=== PATIENT | male | born 1940 | race Caucasian/White ===

== ENCOUNTER 2022-05-24 13:44 | Inpatient (IN) | payer MEDICAID, MEDICARE ==
[~2022-05-24] VITALS: Ht 162.6 cm; Wt 68.7 kg
[~2022-05-24 13:44] MED LIST: NOCURR
[2022-05-24 14:52] LABS: BASOPHILS % (AUTO) 0.8 % (0.0-2.0); HEMOGLOBIN 13.6 g/dL (13.5-17.5); LYMPHOCYTES # (AUTO) 1.2 K/uL (1.0-4.8); LYMPHOCYTES % (AUTO) 19.6 % (22.0-44.0); MEAN CORPUSCULAR HGB CONC 34.8 G/dL (31.0-37.0); MEAN CORPUSCULAR VOLUME 98 fL (80-100); MONOCYTES # (AUTO) 0.5 K/uL (0.1-1.0); MONOCYTES % (AUTO) 7.7 % (2.0-9.0); NEUTROPHILS # (AUTO) 4.1 K/uL (1.8-7.7); NEUTROPHILS % (AUTO) 69.9 % (40.0-70.0); PLATELET COUNT (AUTO) 154 K/uL (150-450)
[2022-05-24 15:04] LABS: ANION GAP 12 mmol/L (8-16); CARBON DIOXIDE 27 mmol/L (22-29); CHLORIDE 102 mmol/L (98-107); CREATININE 1.04 mg/dL (0.60-1.30); GLOMERULAR FILTR. RATE CALC > 60 mL/min (>60); GLUCOSE,RANDOM 93 mg/dL (70-110); POTASSIUM 4.2 mmol/L (3.5-5.1); SODIUM SERUM 141 mmol/L (136-145); UREA NITROGEN, BLOOD 18 mg/dL (7-18)
[2022-05-24 15:09] LABS: ALANINE AMINOTRANSFERASE 41 U/L (12-78); ALBUMIN 3.7 g/dL (3.4-5.0); ALKALINE PHOSPHATASE 37 U/L (46-116); ASPARTATE AMINOTRANSFERASE 22 U/L (15-37); BILIRUBIN,TOTAL 0.6 mg/dL (0.1-1.0); TOTAL PROTEIN, SERUM 6.9 g/dL (6.4-8.2)
[2022-05-24 19:30] LABS: AMPHET/METH SCREEN,URINE NEGATIVE (NEGATIVE); BARBITURATE SCREEN, URINE NEGATIVE (NEGATIVE); BENZODIAZEPINES SCREEN,URINE NEGATIVE (NEGATIVE); CANNABINOID SCREEN,URINE NEGATIVE (NEGATIVE); COCAINE SCREEN,URINE NEGATIVE (NEGATIVE); METHADONE SCREEN, URINE NEGATIVE (NEGATIVE); OPIATE SCREEN,URINE NEGATIVE (NEGATIVE)
[2022-05-24 19:31] LABS: PHENCYCLIDINE SCREEN,URINE NEGATIVE (NEGATIVE)
[2022-05-25] MEDS ORDERED: ZOLPIDEM TARTRATE 10 MG TABLET PO PRN (00:30)
[2022-05-25] MEDS ORDERED: LORazepam 2 MG TABLET PO PRN ×2 (00:30→00:45)
[2022-05-25] MEDS ORDERED: HALOPERIDOL 5 MG TABLET PO PRN (00:30)
[2022-05-25 02:30] LABS: COVID AG,FIA SOURCE NASAL SWAB
[2022-05-25 03:28] VITALS: BP 140/89
[2022-05-25 10:06] VITALS: BP 176/91
[2022-05-25] MEDS: CITALOPRAM HYDROBROMIDE 20 MG TABLET PO SCH (13:15)
[2022-05-25 16:07] VITALS: BP 154/70
[2022-05-25] MEDS ORDERED: LOPERAMIDE HCL 2 MG CAPSULE PO PRN (17:15)
[2022-05-25] MEDS ORDERED: BENZOCAINE/MENTHOL LOZENGE PO PRN (17:15)
[2022-05-25] MEDS ORDERED: OMEPRAZOLE 20 MG CAPSULE PO PRN (17:15)
[2022-05-25] MEDS ORDERED: ALBUTEROL SULFATE HFA 90 MCG/PUFF 8 GM INHALER IH PRN (17:15)
[2022-05-25] MEDS ORDERED: MAG HYDROX/AL HYDROX/SIMETH ES 30 ML SUSPENSION UDCUP PO PRN (17:15)
[2022-05-25] MEDS ORDERED: BACITRACIN 28 GM OINTMENT TP PRN (17:15)
[2022-05-25] MEDS ORDERED: ONDANSETRON HCL 4 MG TABLET PO PRN (17:15)
[2022-05-25] MEDS ORDERED: CloNIDine HCL 0.1 MG TABLET PO PRN (17:15)
[2022-05-25] MEDS ORDERED: PETROLATUM,WHITE 28 GM JELLY TP PRN (17:15)
[2022-05-25] MEDS: METOPROLOL TARTRATE 25 MG TABLET PO SCH (17:46)
[2022-05-25] MEDS: ATORVASTATIN CALCIUM 20 MG TABLET PO SCH (21:06)
[2022-05-26 08:00] VITALS: BP 178/88
[2022-05-26] MEDS: CITALOPRAM HYDROBROMIDE 20 MG TABLET PO SCH (09:01)
[2022-05-26] MEDS: METOPROLOL TARTRATE 25 MG TABLET PO SCH ×2 (09:01→17:09)
[2022-05-26 16:00] VITALS: BP 146/61
[2022-05-26] MEDS: ATORVASTATIN CALCIUM 20 MG TABLET PO SCH (21:12)
[2022-05-27 06:30] VITALS: BP 146/81
[2022-05-27] MEDS: HALOPERIDOL 5 MG TABLET PO PRN (06:33)
[2022-05-27 08:00] VITALS: BP 144/78
[2022-05-27] MEDS: CITALOPRAM HYDROBROMIDE 20 MG TABLET PO SCH (08:51)
[2022-05-27] MEDS: METOPROLOL TARTRATE 25 MG TABLET PO SCH ×2 (08:51→16:31)
[2022-05-27 16:03] VITALS: BP 130/81
[2022-05-27] MEDS: ATORVASTATIN CALCIUM 20 MG TABLET PO SCH (21:42)
[2022-05-28] MEDS: METOPROLOL TARTRATE 25 MG TABLET PO SCH ×2 (09:00→17:29)
[2022-05-28] MEDS: CITALOPRAM HYDROBROMIDE 20 MG TABLET PO SCH (09:00)
[2022-05-28 09:58] VITALS: BP 118/66
[2022-05-28 16:14] VITALS: BP 127/67
[2022-05-28] MEDS: ATORVASTATIN CALCIUM 20 MG TABLET PO SCH (20:03)
[2022-05-29 08:59] VITALS: BP 144/77
[2022-05-29] MEDS: CITALOPRAM HYDROBROMIDE 20 MG TABLET PO SCH (09:23)
[2022-05-29] MEDS: ACETAMINOPHEN 325 MG TABLET PO PRN ×2 (09:23→17:43)
[2022-05-29] MEDS: METOPROLOL TARTRATE 25 MG TABLET PO SCH ×2 (09:23→17:32)
[2022-05-29 16:18] VITALS: BP 130/65
[2022-05-29] MEDS: ATORVASTATIN CALCIUM 20 MG TABLET PO SCH (20:11)
[2022-05-30 03:31] VITALS: BP 140/85
[2022-05-30] MEDS: ACETAMINOPHEN 325 MG TABLET PO PRN ×3 (03:34→16:40)
[2022-05-30 08:50] VITALS: BP 140/74
[2022-05-30] MEDS: CITALOPRAM HYDROBROMIDE 20 MG TABLET PO SCH (08:52)
[2022-05-30] MEDS: METOPROLOL TARTRATE 25 MG TABLET PO SCH ×2 (08:52→16:40)
[2022-05-30 16:37] VITALS: BP 155/89
[2022-05-30] MEDS: ATORVASTATIN CALCIUM 20 MG TABLET PO SCH (21:53)
[2022-05-31 02:45] VITALS: BP 145/90
[2022-05-31] MEDS: HALOPERIDOL 5 MG TABLET PO PRN (02:48)
[2022-05-31 04:08] VITALS: BP 140/85
[2022-05-31] MEDS: IBUPROFEN 600 MG TABLET PO PRN (04:11)
[2022-05-31 07:18] LABS: COVID AG,FIA SOURCE NASAL SWAB
[2022-05-31 08:35] VITALS: BP 137/72
[2022-05-31] MEDS: METOPROLOL TARTRATE 25 MG TABLET PO SCH ×2 (08:49→16:15)
[2022-05-31] MEDS: CITALOPRAM HYDROBROMIDE 20 MG TABLET PO SCH (08:49)
[2022-05-31 16:10] VITALS: BP 132/83
[2022-05-31] MEDS: ATORVASTATIN CALCIUM 20 MG TABLET PO SCH (20:35)
[2022-06-01 08:27] VITALS: BP 141/82
[2022-06-01] MEDS: CITALOPRAM HYDROBROMIDE 20 MG TABLET PO SCH (08:34)
[2022-06-01] MEDS: METOPROLOL TARTRATE 25 MG TABLET PO SCH ×2 (08:34→16:34)
[2022-06-01 16:00] VITALS: BP 125/61
[2022-06-01] MEDS: ATORVASTATIN CALCIUM 20 MG TABLET PO SCH (21:00)
[2022-06-02 08:30] VITALS: BP 127/71
[2022-06-02] MEDS: METOPROLOL TARTRATE 25 MG TABLET PO SCH ×2 (09:27→16:02)
[2022-06-02] MEDS: CITALOPRAM HYDROBROMIDE 20 MG TABLET PO SCH (09:27)
[2022-06-02 10:08] VITALS: BP 127/71
[2022-06-02] MEDS: MAGNESIUM HYDROXIDE SUSPENSION 30 ML UDCUP PO PRN (16:02)
[2022-06-02 16:52] VITALS: BP 136/72
[2022-06-02] MEDS: ATORVASTATIN CALCIUM 20 MG TABLET PO SCH (20:47)
[2022-06-03] MEDS: METOPROLOL TARTRATE 25 MG TABLET PO SCH ×2 (09:24→17:07)
[2022-06-03] MEDS: CITALOPRAM HYDROBROMIDE 20 MG TABLET PO SCH (09:24)
[2022-06-03 10:56] VITALS: BP 134/73
[2022-06-03] MEDS: DOCUSATE SODIUM 100 MG CAPSULE PO PRN (16:48)
[2022-06-03 17:58] VITALS: BP 129/65
[2022-06-03] MEDS: ATORVASTATIN CALCIUM 20 MG TABLET PO SCH (21:26)
[2022-06-04 08:31] VITALS: BP 120/77
[2022-06-04] MEDS: CITALOPRAM HYDROBROMIDE 20 MG TABLET PO SCH (08:58)
[2022-06-04] MEDS: METOPROLOL TARTRATE 25 MG TABLET PO SCH ×2 (08:58→16:52)
[2022-06-04 16:46] VITALS: BP 150/75
[2022-06-04] MEDS: ATORVASTATIN CALCIUM 20 MG TABLET PO SCH (20:54)
[2022-06-05 01:50] VITALS: BP 134/81
[2022-06-05] MEDS: IBUPROFEN 600 MG TABLET PO PRN (01:54)
[2022-06-05] MEDS: METOPROLOL TARTRATE 25 MG TABLET PO SCH ×2 (08:45→17:57)
[2022-06-05] MEDS: CITALOPRAM HYDROBROMIDE 20 MG TABLET PO SCH (08:46)
[2022-06-05 09:29] VITALS: BP 140/70
[2022-06-05 16:47] VITALS: BP 135/54
[2022-06-05] MEDS: ATORVASTATIN CALCIUM 20 MG TABLET PO SCH (20:33)
[2022-06-06 08:00] VITALS: BP 110/62
[2022-06-06] MEDS: METOPROLOL TARTRATE 25 MG TABLET PO SCH ×2 (08:29→18:24)
[2022-06-06] MEDS: CITALOPRAM HYDROBROMIDE 20 MG TABLET PO SCH (08:29)
[2022-06-06 16:38] VITALS: BP 116/61
[2022-06-06] MEDS: ATORVASTATIN CALCIUM 20 MG TABLET PO SCH (20:55)
[2022-06-07 07:15] LABS: COVID AG,FIA SOURCE NASAL SWAB
[2022-06-07 08:00] VITALS: BP 142/83
[2022-06-07] MEDS: CITALOPRAM HYDROBROMIDE 20 MG TABLET PO SCH (09:11)
[2022-06-07] MEDS: METOPROLOL TARTRATE 25 MG TABLET PO SCH ×2 (09:11→16:30)
[2022-06-07] MEDS: CARBIDOPA/LEVODOPA 25-100 MG TABLET PO SCH ×2 (15:23→16:30)
[2022-06-07 16:00] VITALS: BP 131/73
[2022-06-07 17:00] VITALS: BP 136/74
[2022-06-07] MEDS: IBUPROFEN 600 MG TABLET PO PRN (17:00)
[2022-06-07] MEDS: ATORVASTATIN CALCIUM 20 MG TABLET PO SCH (21:21)
[2022-06-08] MEDS: METOPROLOL TARTRATE 25 MG TABLET PO SCH ×2 (09:03→17:24)
[2022-06-08] MEDS: CITALOPRAM HYDROBROMIDE 20 MG TABLET PO SCH (09:03)
[2022-06-08] MEDS: CARBIDOPA/LEVODOPA 25-100 MG TABLET PO SCH ×3 (09:03→17:24)
[2022-06-08 09:45] VITALS: BP 131/73
[2022-06-08] MEDS: DOCUSATE SODIUM 100 MG CAPSULE PO PRN (13:31)
[2022-06-08 17:22] VITALS: BP 131/73
[2022-06-08] MEDS: IBUPROFEN 600 MG TABLET PO PRN (17:22)
[2022-06-08] MEDS: ATORVASTATIN CALCIUM 20 MG TABLET PO SCH (21:20)
[2022-06-09] MEDS: METOPROLOL TARTRATE 25 MG TABLET PO SCH ×2 (09:44→17:36)
[2022-06-09] MEDS: CARBIDOPA/LEVODOPA 25-100 MG TABLET PO SCH ×3 (09:44→17:36)
[2022-06-09] MEDS: CITALOPRAM HYDROBROMIDE 20 MG TABLET PO SCH (09:44)
[2022-06-09 10:15] VITALS: BP 133/71
[2022-06-09 17:48] VITALS: BP 145/76
[2022-06-09] MEDS: ATORVASTATIN CALCIUM 20 MG TABLET PO SCH (21:01)
[2022-06-10 04:21] VITALS: BP 144/90
[2022-06-10] MEDS: ACETAMINOPHEN 325 MG TABLET PO PRN (04:21)
[2022-06-10] MEDS: CITALOPRAM HYDROBROMIDE 20 MG TABLET PO SCH (09:09)
[2022-06-10] MEDS: CARBIDOPA/LEVODOPA 25-100 MG TABLET PO SCH (09:09)
[2022-06-10] MEDS: METOPROLOL TARTRATE 25 MG TABLET PO SCH ×2 (09:09→16:04)
[2022-06-10] MEDS: IBUPROFEN 600 MG TABLET PO PRN (09:15)
[2022-06-10] MEDS: MAGNESIUM HYDROXIDE SUSPENSION 30 ML UDCUP PO PRN (09:16)
[2022-06-10 09:18] VITALS: BP 149/82
[2022-06-10 16:19] VITALS: BP 116/62
[2022-06-10] MEDS: ATORVASTATIN CALCIUM 20 MG TABLET PO SCH (21:05)
[2022-06-11 08:00] VITALS: BP 143/70
[2022-06-11] MEDS: METOPROLOL TARTRATE 25 MG TABLET PO SCH ×2 (10:48→17:19)
[2022-06-11] MEDS: CITALOPRAM HYDROBROMIDE 20 MG TABLET PO SCH (10:48)
[2022-06-11 16:27] VITALS: BP 118/61
[2022-06-11] MEDS: ATORVASTATIN CALCIUM 20 MG TABLET PO SCH (20:26)
[2022-06-12 09:00] VITALS: BP 134/81
[2022-06-12] MEDS: CITALOPRAM HYDROBROMIDE 20 MG TABLET PO SCH (09:00)
[2022-06-12] MEDS: METOPROLOL TARTRATE 25 MG TABLET PO SCH ×2 (09:00→16:59)
[2022-06-12] MEDS: DOCUSATE SODIUM 100 MG CAPSULE PO PRN (10:39)
[2022-06-12 16:30] VITALS: BP 125/75
[2022-06-12] MEDS: ATORVASTATIN CALCIUM 20 MG TABLET PO SCH (20:59)
[2022-06-13 08:36] VITALS: BP 155/83
[2022-06-13] MEDS: METOPROLOL TARTRATE 25 MG TABLET PO SCH ×2 (09:34→17:31)
[2022-06-13] MEDS: CITALOPRAM HYDROBROMIDE 20 MG TABLET PO SCH (09:34)
[2022-06-13 16:14] VITALS: BP 142/76
[2022-06-13] MEDS: ATORVASTATIN CALCIUM 20 MG TABLET PO SCH (20:35)
[2022-06-14 06:47] LABS: COVID AG,FIA SOURCE NASAL SWAB
[2022-06-14] MEDS: METOPROLOL TARTRATE 25 MG TABLET PO SCH ×2 (09:08→16:05)
[2022-06-14] MEDS: CITALOPRAM HYDROBROMIDE 20 MG TABLET PO SCH (09:08)
[2022-06-14 09:27] VITALS: BP 127/60
[2022-06-14 16:00] VITALS: BP 119/67
[2022-06-14] MEDS: ATORVASTATIN CALCIUM 20 MG TABLET PO SCH (21:49)
[2022-06-15 08:30] VITALS: BP 134/84
[2022-06-15] MEDS: METOPROLOL TARTRATE 25 MG TABLET PO SCH ×2 (08:56→16:33)
[2022-06-15] MEDS: CITALOPRAM HYDROBROMIDE 20 MG TABLET PO SCH (08:57)
[2022-06-15 16:19] VITALS: BP 130/80
[2022-06-15] MEDS: ATORVASTATIN CALCIUM 20 MG TABLET PO SCH (20:36)
[2022-06-15] MEDS: ZOLPIDEM TARTRATE 10 MG TABLET PO PRN (23:31)
[2022-06-16] MEDS: CITALOPRAM HYDROBROMIDE 20 MG TABLET PO SCH (08:50)
[2022-06-16] MEDS: IBUPROFEN 600 MG TABLET PO PRN (08:58)
[2022-06-16 08:59] VITALS: BP 125/78
[2022-06-16] MEDS: METOPROLOL TARTRATE 25 MG TABLET PO SCH ×2 (09:01→16:56)
[2022-06-16] MEDS: CARBIDOPA/LEVODOPA 25-100 MG TABLET PO SCH ×2 (12:16→16:56)
[2022-06-16 16:50] VITALS: BP 128/64
[2022-06-16 16:53] VITALS: BP 119/63
[2022-06-16] MEDS: ATORVASTATIN CALCIUM 20 MG TABLET PO SCH (20:08)
[2022-06-17 09:00] VITALS: BP 108/58
[2022-06-17] MEDS: CARBIDOPA/LEVODOPA 25-100 MG TABLET PO SCH ×3 (09:00→16:20)
[2022-06-17] MEDS: METOPROLOL TARTRATE 25 MG TABLET PO SCH ×2 (09:00→16:20)
[2022-06-17] MEDS: CITALOPRAM HYDROBROMIDE 20 MG TABLET PO SCH (09:00)
[2022-06-17 16:05] VITALS: BP 139/71
[2022-06-17] MEDS: ATORVASTATIN CALCIUM 20 MG TABLET PO SCH (20:40)
[2022-06-18 08:15] VITALS: BP 124/71
[2022-06-18] MEDS: CARBIDOPA/LEVODOPA 25-100 MG TABLET PO SCH ×3 (08:42→16:13)
[2022-06-18] MEDS: METOPROLOL TARTRATE 25 MG TABLET PO SCH ×2 (08:42→16:13)
[2022-06-18] MEDS: CITALOPRAM HYDROBROMIDE 20 MG TABLET PO SCH (08:42)
[2022-06-18 16:16] VITALS: BP 107/60
[2022-06-18] MEDS: ATORVASTATIN CALCIUM 20 MG TABLET PO SCH (20:55)
[2022-06-18] MEDS: ZOLPIDEM TARTRATE 10 MG TABLET PO PRN (21:03)
[2022-06-19 08:37] VITALS: BP 153/90
[2022-06-19] MEDS: METOPROLOL TARTRATE 25 MG TABLET PO SCH ×2 (09:00→16:51)
[2022-06-19] MEDS: CARBIDOPA/LEVODOPA 25-100 MG TABLET PO SCH ×3 (09:00→16:51)
[2022-06-19] MEDS: CITALOPRAM HYDROBROMIDE 20 MG TABLET PO SCH (09:00)
[2022-06-19 16:36] VITALS: BP 129/61
[2022-06-19] MEDS: ZOLPIDEM TARTRATE 10 MG TABLET PO PRN (20:31)
[2022-06-19] MEDS: HALOPERIDOL 5 MG TABLET PO PRN (20:31)
[2022-06-19] MEDS: ATORVASTATIN CALCIUM 20 MG TABLET PO SCH (20:32)
[2022-06-20 08:52] VITALS: BP 120/76
[2022-06-20] MEDS: METOPROLOL TARTRATE 25 MG TABLET PO SCH ×2 (09:17→17:00)
[2022-06-20] MEDS: CITALOPRAM HYDROBROMIDE 20 MG TABLET PO SCH (09:17)
[2022-06-20] MEDS: CARBIDOPA/LEVODOPA 25-100 MG TABLET PO SCH ×3 (09:17→17:00)
[2022-06-20 16:13] VITALS: BP 129/81
[2022-06-20] MEDS: ATORVASTATIN CALCIUM 20 MG TABLET PO SCH (20:04)
[2022-06-21 08:00] VITALS: BP 140/78
[2022-06-21 08:06] LABS: COVID AG,FIA SOURCE NASAL SWAB
[2022-06-21] MEDS: CARBIDOPA/LEVODOPA 25-100 MG TABLET PO SCH ×4 (09:45→16:58)
[2022-06-21] MEDS: METOPROLOL TARTRATE 25 MG TABLET PO SCH ×2 (09:47→16:56)
[2022-06-21] MEDS: CITALOPRAM HYDROBROMIDE 20 MG TABLET PO SCH (09:50)
[2022-06-21] MEDS: ATORVASTATIN CALCIUM 20 MG TABLET PO SCH (20:52)
[2022-06-22] MEDS: CITALOPRAM HYDROBROMIDE 20 MG TABLET PO SCH (08:36)
[2022-06-22] MEDS: CARBIDOPA/LEVODOPA 25-100 MG TABLET PO SCH ×3 (08:36→16:28)
[2022-06-22] MEDS: METOPROLOL TARTRATE 25 MG TABLET PO SCH ×2 (08:36→16:28)
[2022-06-22 09:39] VITALS: BP 132/79
[2022-06-22 16:38] VITALS: BP 118/60
[2022-06-22] MEDS: ATORVASTATIN CALCIUM 20 MG TABLET PO SCH (20:27)
[2022-06-23 08:00] VITALS: BP 126/61
[2022-06-23] MEDS: CARBIDOPA/LEVODOPA 25-100 MG TABLET PO SCH (09:17)
[2022-06-23] MEDS: METOPROLOL TARTRATE 25 MG TABLET PO SCH (09:18)
[2022-06-23] MEDS: CITALOPRAM HYDROBROMIDE 20 MG TABLET PO SCH (09:18)
[2022-06-23] MEDS: DOCUSATE SODIUM 100 MG CAPSULE PO PRN (10:47)
[2022-06-23] MEDS ORDERED: CITA-144 PO (11:17)
== END 2022-06-23 12:06 | disposition home or self-care (01) | DRG 881 ==
LOC: EMS 13:46 → 3EI 05-25 00:14
PROVIDERS: ADMIT Internal Medicine; ATTEND Psychiatry & Neurology Psychiatry
DX: F32.9 Major depressive disorder, single episode, unspecified (principal); R45.851 Suicidal ideations; E78.00 Pure hypercholesterolemia, unspecified; Z20.822 Contact with and (suspected) exposure to COVID-19; F22 Delusional disorders; G20 Parkinson's disease; I10 Essential (primary) hypertension; Z85.47 Personal history of malignant neoplasm of testis; K21.9 Gastro-esophageal reflux disease without esophagitis; M19.90 Unspecified osteoarthritis, unspecified site; F41.9 Anxiety disorder, unspecified; K59.00 Constipation, unspecified; Z72.0 Tobacco use; G47.00 Insomnia, unspecified
CPT/HCPCS: 80053; 85025; 87081; 97161; 97165; 97535; 99285; G0480